=== PATIENT | male | born 1980 | race Caucasian/White ===

== ENCOUNTER 2023-01-23 08:27 | Day surgery (SDC) | payer BC ==
[2023-01-23] MEDS ORDERED: Ondansetron 4 MG/2 ML SDV IVPUSH ONE (09:10)
[2023-01-23] MEDS ORDERED: Morphine 4 MG/ML Syringe IVPUSH ONE (09:10)
[2023-01-23 09:18] LABS: BASOPHILS PERCENT AUTO 0.1 % (0.0-1.5); EOSINOPHILS ABSOLUTE AUTO 0.1 K/uL (0.0-0.7); EOSINOPHILS PERCENT AUTO 0.5 % (0.0-7.0); HEMATOCRIT 44.8 % (38.0-50.0); HEMOGLOBIN 16.1 g/dL (13.0-17.0); LYMPHOCYTES ABSOLUTE AUTO 1.1 K/uL (0.6-2.4); LYMPHOCYTES PERCENT AUTO 7.6 % (16.0-40.0); MEAN CORPUSCULAR HEMOGLOBIN 33.5 pg (27.0-32.0); MEAN CORPUSCULAR HGB CONC 35.9 g/dL (31.0-37.0); MEAN CORPUSCULAR VOLUME 93.3 fL (80.0-98.0); MONOCYTES ABSOLUTE AUTO 1.2 K/uL (0.0-0.8); MONOCYTES PERCENT AUTO 7.7 % (0.0-15.0); NEUTROPHILS ABSOLUTE AUTO 12.5 K/uL (1.4-5.7); NEUTROPHILS PERCENT AUTO 84.1 % (48.0-80.0); NRBC ABSOLUTE 0 K/uL; PLATELET COUNT,PLT 163 K/uL (150-400); WHITE BLOOD CELL COUNT,WBC 14.91 K/uL (4.0-11.0)
[2023-01-23 09:31] LABS: INR 1.02 (0.86-1.11)
[2023-01-23 09:52] LABS: ALBUMIN 3.5 g/dL (3.4-5.0); BILIRUBIN TOTAL 0.4 mg/dL (0.2-1.0); CALCIUM 8.9 mg/dL (8.5-10.1); CARBON DIOXIDE,CO2 26.4 mmol/L (21.0-32.0); CREATININE 1.1 mg/dL (0.8-1.3); EST CRCL DRUG DOSING (CG) 109.13 mL/min; POTASSIUM,K 4.2 mmol/L (3.5-5.1); PROTEIN TOTAL,TP 6.9 g/dL (6.4-8.2)
[2023-01-23] MEDS ORDERED: Sulfamethoxazole/Trimethoprim 800-160 MG Tab PO ONE (10:26)
[2023-01-23] MEDS ORDERED: Cephalexin 500 MG Cap PO ONE (10:26)
[2023-01-23] MEDS ORDERED: HYDROmorphone 1 MG/ML Syringe IVPUSH ONE (10:41)
[2023-01-23] MEDS ORDERED: Iopamidol 755 MG/ML 500 ML Multipack Bottle IVPUSH ONE (10:45)
[2023-01-23] MEDS ORDERED: Sodium Chloride 0.9% 20 ML SDV IV PRN (12:26)
[2023-01-23] MEDS ORDERED: cefOXitin 2 GM in Sodium Chloride 0.9% 50 ML IV ONE (12:26)
[2023-01-23] MEDS ORDERED: Sodium Chloride 0.9% 10 ML Syringe FLUSH PRN (12:26)
[2023-01-23] MEDS ORDERED: Sodium Chloride 0.9% 2.5 ML Syringe FLUSH PRN (12:26)
[2023-01-23] MEDS ORDERED: Lactated Ringers 1,000 ML IV SCH (12:30)
[2023-01-23] MEDS ORDERED: Chloroprocaine 10 MG/ML 5 ML Amp ONE (12:44)
[2023-01-23] MEDS ORDERED: fentaNYL 50 MCG/ML SDV IVPUSH PRN (12:57)
[2023-01-23] MEDS ORDERED: Morphine 2 MG/ML SYRINGE IVPUSH PRN (12:57)
[2023-01-23] MEDS ORDERED: Metoclopramide 10 MG/2 ML SDV IVPUSH PRN (12:57)
[2023-01-23] MEDS ORDERED: droPERidol 5 MG/2 ML SDV IVPUSH PRN (12:57)
[2023-01-23] MEDS ORDERED: Naloxone 0.4 MG/ML SDV IVPUSH PRN (12:57)
[2023-01-23] MEDS ORDERED: Ondansetron 4 MG/2 ML SDV IVPUSH PRN (12:57)
[2023-01-23] MEDS ORDERED: Albuterol 0.083% 2.5 MG/3 ML Neb Soln NEB PRN (12:57)
[2023-01-23] MEDS ORDERED: HYDROmorphone 1 MG/ML Syringe IVPUSH PRN (12:57)
[2023-01-23] MEDS ORDERED: Propofol 200 MG/20 ML SDV ONE (12:58)
[2023-01-23] MEDS ORDERED: Lidocaine 2% 5 ML SDV ONE (12:58)
[2023-01-23] MEDS ORDERED: fentaNYL 100 MCG/2 ML SDV ONE (12:58)
[2023-01-23] MEDS ORDERED: Famotidine 20 MG/2 ML SDV ONE (13:00)
[2023-01-23] MEDS ORDERED: Bupivacaine 0.5% 30 ML SDV ONE (13:01)
[2023-01-23] MEDS ORDERED: Ketorolac 30 MG/ML SDV ONE (13:31)
== END 2023-01-23 15:30 | disposition home or self-care (01) ==
LOC: MW.ED 08:27 → MW.SDS 12:44
PROVIDERS: ATTEND Surgery
DX: L05.01 Pilonidal cyst with abscess (principal); F17.210 Nicotine dependence, cigarettes, uncomplicated
CPT/HCPCS: 10081; 36415; 72193; 80053; 85025; 85610; 96374; 96375; 99285; A9270; J0131; J1170; J1885; J2270; J2401; J2405; J2704; J3010; J3490; J7120; Q9967